=== PATIENT | female | born 1980 | race African-American/Black ===

== ENCOUNTER 2016-04-20 21:37 | Emergency (ER) | payer OTHER ==
[2016-04-20 21:58] VITALS: BP 147/75; PULSE 118; TEMP 99.3; BMI 25.7
== END 2016-04-20 23:18 | disposition left against medical advice (07) ==
LOC: JER 21:37
DX: Z53.21 Procedure and treatment not carried out due to patient leaving prior to being seen by health care provider (principal)
CPT/HCPCS: 99281-25